=== PATIENT | female | born 1980 | race Caucasian/White ===

== ENCOUNTER 2020-11-10 08:55 | Emergency (ER) | payer OTHER, MEDICAID ==
[~2020-11-10] VITALS: Ht 175.3 cm; Wt 85.7 kg
[~2020-11-10 08:55] MED LIST: ADDERALL 30 MG30 MG PO; ADDERALL XR 3030 MG; AMBIEN 5 MG TABL5 M1 PO; DIFLUCAN150 M1 PO; KEFLEX500 MG PO; NORCO 5-325 TA1 EACH PO; OMEPRAZOLE40 MG; XANAX1 MG PO; ZOFRAN4 MG PO
[2020-11-10 09:12] VITALS: BP 150/89
[2020-11-10] MEDS ORDERED: NORCO5 PO (09:48)
[2020-11-10] MEDS ORDERED: CEPHALEXIN500 MG PO (09:48)
[2020-11-10] MEDS ORDERED: BACTRIM DS TAB1 EAC1 PO (09:48)
== END 2020-11-10 10:05 | disposition home or self-care (01) ==
LOC: M.ERS 08:55
DX: L73.2 Hidradenitis suppurativa (principal); Z98.890 Other specified postprocedural states; Z90.49 Acquired absence of other specified parts of digestive tract; Z90.710 Acquired absence of both cervix and uterus